=== PATIENT | female | born 1970 | race American Indian/Alaskan Native ===

== ENCOUNTER 2019-11-11 14:14 | Emergency (ER) | payer OTHER ==
[2019-11-11 14:38] VITALS: BP 120/68; PULSE 110
--- NOTE | 2019-11-11 15:24 | CR ---
EXAMINATION: Chest 1V Frontal SEX: Female AGE: 49 years CLINICAL HISTORY: 49-year-old female with postoperative fever. INTERPRETATION: Generally poor inspiratory effort morbidly obese patient. 1. Platelike atelectasis left midlung. 2. Some peribronchial "cuffing" but no focal lobar pneumonia. No other atelectasis/collapse. 3. Normal cardiac silhouette without pulmonary vascular congestion, cephalization flow or alveolar edema. 4. No lung mass or hilar lymphadenopathy. 5. No pneumothorax or pneumomediastinum. 6. Tracheobronchial airway unremarkable. No foreign bodies. CONCLUSION: Mild bronchitis and perihilar atelectasis on the left. No lobar pneumonia. CONCLUSION:
--- NOTE | 2019-11-11 15:27 | EDM.PDOC ---
ED HPI GENERAL MEDICAL PROBLEM - General Chief Complaint: Back Pain or Injury Stated Complaint: FEVER- JUST HAD SURGERY Time Seen by Provider: 11/11/19 15:00 Source of Information: Reports: Patient, Old Records, RN, RN Notes Reviewed History Limitations: Reports: No Limitations - History of Present Illness INITIAL COMMENTS - FREE TEXT/NARRATIVE: Pt presents to ER from home by POV via wheelchair with c/o of a fever this morning of 101.8F on POD #2 s/p L5/S1 fusion. Pt states she had surgery on Thursday11/09/[address] [place] [address] Harrell at [facility] in [place]. She reports having a spinal fusion at L5-S1 with 2 rods and 4 screws and a graphite spacer. She contacted her surgeon's office today and was told to come to the ER. Pt denies cough, dysuria, nausea, vomiting, diarrhea, or surgical wound drainage. Onset: Today Duration: Resolved Prior to Arrival Location: Reports: Generalized Severity: Moderate Improves with: Reports: None Worsens with: Reports: None Associated Symptoms: Reports: No Other Symptoms Back Pain Score (Numeric/FACES): 8 - Related Data Allergies Allergy/AdvReac Type Severity Reaction Status Date / Time No Known Allergies Allergy Verified 11/11/19 14:32 Home Meds: Home Meds Ibuprofen [Advil Migraine] 600 mg PO Q4H 09/28/13 [History] Acetaminophen [Tylenol] 1,000 mg PO ASDIRECTED 12/01/15 [History] Cyclobenzaprine [Flexeril] 10 mg PO BID 11/11/19 [History] DULoxetine [Cymbalta] 30 mg PO BEDTIME 11/11/19 [History] Liraglutide [Victoza] 1.8 mg SQ DAILY 11/11/19 [History] metFORMIN [Glucophage XR] 1,000 mg PO BIDMEALS PRN 11/11/19 [History] oxyCODONE 5 mg PO PRN 11/11/19 [History] Past Medical History HEENT History: Reports: None Cardiovascular History: Reports: None Respiratory History: Reports: None Gastrointestinal History: Reports: None Genitourinary History: Reports: None HEALTH COMMUNICATIONS SPECIALIST History: Reports: None Musculoskeletal History: Reports: Back Pain, Chronic Neurological History: Reports: None Psychiatric History: Reports: None Endocrine/Metabolic History: Reports: Diabetes, Type II, Obesity/BMI 30+ Hematologic History: Reports: None Immunologic History: Reports: None Oncologic (Cancer) History: Reports: None Dermatologic History: Reports: None - Infectious Disease History Infectious Disease History: Reports: None - Past Surgical History Head Surgeries/Procedures: Reports: None Musculoskeletal Surgical History: Reports: Other (See Below) Other Musculoskeletal Surgeries/Procedures:: back surgery L5-S1 Social & Family History - Family History Family Medical History: Noncontributory - Tobacco Use Smoking Status *Q: Never Smoker Second Hand Smoke Exposure: No - Caffeine Use Caffeine Use: Reports: Soda - Recreational Drug Use Recreational Drug Use: No - Living Situation & Occupation Living situation: Reports: with Family ED ROS GENERAL - Review of Systems Review Of Systems: Comprehensive ROS is negative, except as noted in HPI. ED EXAM,LOWER BACK PAIN/INJURY - Physical Exam Exam: See Below Exam Limited By: No Limitations General Appearance: Alert, No Apparent Distress, Obese Eye Exam: Bilateral Eye: Normal Inspection Nose: Normal Inspection, Normal Mucosa, No Blood Throat/Mouth: Normal Inspection, Normal Lips, Normal Teeth, Normal Gums, Normal Oropharynx, Normal Voice, No Airway Compromise Head: Atraumatic, Normocephalic Neck: Normal Inspection, Supple, Non-Tender, Full Range of Motion Respiratory/Chest: No Respiratory Distress, Lungs Clear, Normal Breath Sounds, No Accessory Muscle Use, Chest Non-Tender Cardiovascular: Regular Rate, Rhythm, Tachycardia GI/Abdominal: Normal Bowel Sounds, Soft, Non-Tender, Other (Benign obese abdomen ) (Female) Exam: Deferred Rectal (Female) Exam: Deferred Back Exam: Paraspinal Tenderness (as expected postoperatively), Other (Lumbar surgical dressings are clean and dry, wounds intact without erythema or drainage.). No: CVA Tenderness (L), CVA Tenderness (R), Vertebral Tenderness Extremities: Normal Inspection Neurological: Alert, Normal Mood/Affect, Normal Dorsiflexion, CN II-XII Intact, Normal Plantar Flexion, No Motor/Sensory Deficits, Oriented x 3 Psychiatric: Normal Affect, Normal Mood Skin Exam: Warm, Dry, Normal Color, No Rash Course - Vital Signs Last Recorded V/S: Last Vital Signs Temp 99.0 F 11/11/19 14:35 Pulse 110 H 11/11/19 14:35 Resp 20 11/11/19 14:35 BP 120/68 11/11/19 14:35 Pulse Ox 97 11/11/19 14:35 - Orders/Labs/Meds Labs: Laboratory Tests 11/11/19 11/11/19 11/11/19 Range/Units 14:50 15:00 15:21 WBC 14.3 H (5.0-10.0) 10^3/uL RBC 4.81 (4.2-5.4) 10^6/uL Hgb 13.7 (12.0-16.0) g/dL Hct 40.9 (37.0-47.0) % MCV 85.0 D (80-100) fL MCH 28.5 (27.0-34.0) pg MCHC 33.5 (33.0-35.0) g/dL Plt Count 251 (150-450) 10^3/uL Neut % (Auto) 71.1 (42.2-75.2) % Lymph % (Auto) 20.4 L (20.5-50.1) % Boyle % (Auto) 7.5 (2-8) % Eos % (Auto) 0.7 L (1.0-3.0) % Baso % (Auto) 0.3 (0.0-1.0) % Urine Color Yellow (YELLOW) Urine Appearance Slightly cloudy (CLEAR) Urine pH 6.5 (5.0-9.0) Ur Specific [place] 1.020 (1.005-1.030) Urine Protein 30 H (NEGATIVE) Urine Glucose (UA) 500 H (NEGATIVE) Urine Ketones Negative (NEGATIVE) Urine Occult Blood Negative (NEGATIVE) Urine Nitrite Negative (NEGATIVE) Urine Bilirubin Negative (NEGATIVE) Urine Urobilinogen 0.2 (0.2-1.0) mg/dL Ur Leukocyte Esterase Negative (NEGATIVE) Urine RBC 5-10 H /HPF Urine WBC 0-5 (0-5/HPF) /HPF Ur Epithelial Cells Few (NOT SEEN) /HPF Urine Bacteria Rare (0-FEW/HPF) /HPF Urine Mucus Rare (NOT SEEN) /LPF SARS-CoV-2 RNA (RT-PCR) Negative (NEGATIVE) - Radiology Interpretation Free Text/Narrative:: XR Chest: Mild bronchitis and perihilar atelectasis on the left. No lobar pneumonia. Departure - Departure Time of Disposition: 15:48 Disposition: Home, Self-Care 01 Condition: Good Clinical Impression: Atelectasis of left lung, Postoperative fever - Discharge Information *PRESCRIPTION DRUG MONITORING PROGRAM REVIEWED*: Not Applicable *COPY OF PRESCRIPTION DRUG MONITORING REPORT IN PATIENT CASIMIRO: Not Applicable Instructions: Atelectasis, Adult Forms: ED Department Discharge Additional Instructions: Rx: Zithromax 500mg Call your surgeon if any fever returns. Sepsis Event Note - Evaluation Sepsis Screening Result: No Definite Risk - Focused Exam Vital Signs: Vital Signs Temp Pulse Resp BP Pulse Ox 11/11/19 14:35 99.0 F 110 H 20 120/68 97 Date Exam was Performed: 11/11/19 Time Exam was Performed: 15:46
== END 2019-11-11 15:57 | disposition home or self-care (01) ==
LOC: DL.ED 14:14
DX: J98.11 Atelectasis (principal); E11.9 Type 2 diabetes mellitus without complications; E66.9 Obesity, unspecified; Z79.899 Other long term (current) drug therapy; Z79.84 Long term (current) use of oral hypoglycemic drugs; Z68.41 Body mass index [BMI] 40.0-44.9, adult
CPT/HCPCS: 36415; 71045; 81001; 85025; 99283; U0002

== ENCOUNTER 2020-01-13 20:56 | Emergency (ER) | payer OTHER ==
--- NOTE | 2020-01-13 21:42 | EDM.PDOC ---
ED HPI GENERAL MEDICAL PROBLEM - General Chief Complaint: Respiratory Problem Stated Complaint: COVID Time Seen by Provider: 01/13/20 21:38 Source of Information: Reports: Patient, RN History Limitations: Reports: No Limitations - History of Present Illness INITIAL COMMENTS - FREE TEXT/NARRATIVE: ED with c/o SOB and weakness. Diagnosed with CoVID on Thursday after 10days of symptoms. Reports exposure from family member that was at basketball camp. Spouse also positive. no hx asthma. Prior smoker. nausea, decreased appetite, Loss of taste and smell. denies fever Anterior Chest Pain Score (Numeric/FACES): 8 - Related Data Allergies Allergy/AdvReac Type Severity Reaction Status Date / Time No Known Allergies Allergy Verified 01/13/20 22:00 Home Meds: Home Meds Ibuprofen [Advil Migraine] 600 mg PO Q4H 09/28/13 [History] Acetaminophen [Tylenol] 1,000 mg PO ASDIRECTED 12/01/15 [History] Cyclobenzaprine [Flexeril] 10 mg PO BID 11/11/19 [History] DULoxetine [Cymbalta] 30 mg PO BEDTIME 11/11/19 [History] Liraglutide [Victoza] 1.8 mg SQ DAILY 11/11/19 [History] metFORMIN [Glucophage XR] 1,000 mg PO BIDMEALS PRN 11/11/19 [History] Zolpidem [Ambien] 5 mg PO BEDTIME PRN 01/13/20 [History] Past Medical History HEENT History: Reports: None Cardiovascular History: Reports: None Respiratory History: Reports: None Gastrointestinal History: Reports: None Genitourinary History: Reports: None [employer] INSULATION SUPERVISOR History: Reports: None Musculoskeletal History: Reports: Back Pain, Chronic Neurological History: Reports: None Psychiatric History: Reports: None Endocrine/Metabolic History: Reports: Diabetes, Type II, Obesity/BMI 30+ Hematologic History: Reports: None Immunologic History: Reports: None Oncologic (Cancer) History: Reports: None Dermatologic History: Reports: None - Infectious Disease History Infectious Disease History: Reports: None - Past Surgical History Head Surgeries/Procedures: Reports: None Musculoskeletal Surgical History: Reports: Other (See Below) Other Musculoskeletal Surgeries/Procedures:: back surgery L5-S1 Social & Family History - Family History Family Medical History: Noncontributory - Caffeine Use Caffeine Use: Reports: Soda - Living Situation & Occupation Living situation: Reports: with Family ED ROS GENERAL - Review of Systems Review Of Systems: Comprehensive ROS is negative, except as noted in HPI. ED EXAM, GENERAL - Physical Exam Exam: See Below Exam Limited By: No Limitations General Appearance: Alert, Mild Distress Eye Exam: Bilateral Eye: EOMI, PERRL Ears: Normal External Exam, Normal TMs Nose: Normal Inspection Throat/Mouth: Normal Inspection Head: Atraumatic, Normocephalic Neck: Normal Inspection Respiratory/Chest: Decreased Breath Sounds. No: Rales, Rhonchi, Wheezing Cardiovascular: Normal Peripheral Pulses, Regular Rate, Rhythm, Tachycardia GI/Abdominal: Normal Bowel Sounds, Soft, Non-Tender Back Exam: Normal Inspection Extremities: Normal Inspection Neurological: Alert, Oriented, Normal Cognition Psychiatric: Anxious, Flat Affect Skin Exam: Warm, Dry, Intact, Normal Color Course - Vital Signs Last Recorded V/S: Last Vital Signs Temp Pulse 114 H 01/13/20 21:30 Resp 22 H 01/13/20 21:30 BP 118/89 01/13/20 21:30 Pulse Ox 99 01/13/20 21:30 - Orders/Labs/Meds Orders: Active Orders 24 hr Category Date Time Status EKG Documentation Completion [RC] URGENT Care 01/13/20 21:38 Active CULTURE BLOOD [BC] Stat Lab 01/13/20 21:50 Received CULTURE BLOOD [BC] Stat Lab 01/13/20 21:55 Results Blood Culture x2 Reflex Set [OM.PC] Stat Oth 01/13/20 21:38 Ordered Labs: Laboratory Tests 01/13/20 01/13/20 01/13/20 Range/Units 21:50 21:50 21:50 WBC 8.2 (5.0-10.0) 10^3/uL RBC 5.66 H (4.2-5.4) 10^6/uL Hgb 15.4 D (12.0-16.0) g/dL Hct 46.2 (37.0-47.0) % MCV 81.6 D (80-100) fL MCH 27.2 (27.0-34.0) pg MCHC 33.3 (33.0-35.0) g/dL Plt Count 218 (150-450) 10^3/uL Neut % (Auto) 65.2 (42.2-75.2) % Lymph % (Auto) 29.0 (20.5-50.1) % Will % (Auto) 5.1 (2-8) % Eos % (Auto) 0.5 L (1.0-3.0) % Baso % (Auto) 0.2 (0.0-1.0) % D-Dimer, Quantitative (0-400) ng/mL Sodium 135 L (136-145) mmol/L Potassium 3.5 (3.5-5.1) mmol/L Chloride 98 (98-107) mmol/L Carbon Dioxide 26 (21-32) mmol/L Anion Gap 14.5 H (7-13) mEq/L BUN 8 (7-18) mg/dL Creatinine 0.92 (0.55-1.02) mg/dL Est Cr Clr Drug Dosing 70.77 mL/min Estimated GFR (MDRD) > 60 BUN/Creatinine Ratio 8.7 (No establ ref range) Glucose 214 H (74-99) mg/dL Lactic Acid 2.6 H* (0.4-2.0) mmol/L Calcium 8.4 L (8.5-10.1) mg/dL Total Bilirubin 0.6 (0.2-1.0) mg/dL AST 45 H (15-37) U/L ALT 70 H (14-59) U/L Alkaline Phosphatase 109 (46-116) U/L C-Reactive Protein 5.9 H (0.0-0.9) mg/dL Total Protein 7.6 (6.4-8.2) g/dL Albumin 3.2 L (3.4-5.0) g/dL Globulin 4.4 Albumin/Globulin Ratio 0.73 Amylase 53 (25-115) U/L Lipase 264 (73-393) U/L /12/25 Range/Units 21:50 WBC (5.0-10.0) 10^3/uL RBC (4.2-5.4) 10^6/uL Hgb (12.0-16.0) g/dL Hct (37.0-47.0) % MCV (80-100) fL MCH (27.0-34.0) pg MCHC (33.0-35.0) g/dL Plt Count (150-450) 10^3/uL Neut % (Auto) (42.2-75.2) % Lymph % (Auto) (20.5-50.1) % Will % (Auto) (2-8) % Eos % (Auto) (1.0-3.0) % Baso % (Auto) (0.0-1.0) % D-Dimer, Quantitative 259 (0-400) ng/mL Sodium (136-145) mmol/L Potassium (3.5-5.1) mmol/L Chloride (98-107) mmol/L Carbon Dioxide (21-32) mmol/L Anion Gap (7-13) mEq/L BUN (7-18) mg/dL Creatinine (0.55-1.02) mg/dL Est Cr Clr Drug Dosing mL/min Estimated GFR (MDRD) BUN/Creatinine Ratio (No establ ref range) Glucose (74-99) mg/dL Lactic Acid (0.4-2.0) mmol/L Calcium (8.5-10.1) mg/dL Total Bilirubin (0.2-1.0) mg/dL AST (15-37) U/L ALT (14-59) U/L Alkaline Phosphatase (46-116) U/L C-Reactive Protein (0.0-0.9) mg/dL Total Protein (6.4-8.2) g/dL Albumin (3.4-5.0) g/dL Globulin Albumin/Globulin Ratio Amylase (25-115) U/L Lipase (73-393) U/L Meds: Medications Discontinued Medications Generic Name Dose Route Start Last Admin Trade Name Freq PRN Reason Stop Dose Admin Aspirin 324 mg 01/13/20 22:42 01/13/20 23:27 Aspirin PO 01/13/20 22:43 324 mg ONETIME ONE Administration Sodium Chloride 250 mls @ 100 mls/hr 01/13/20 23:30 Normal Saline IV ASDIRECTED ROBERTA Sodium Chloride 1,000 mls @ 100 mls/hr 01/13/20 23:30 01/13/20 23:25 Normal Saline IV 100 mls/hr ASDIRECTED ROBERTA Administration Morphine Sulfate 2 mg 01/13/20 22:42 01/13/20 23:25 Morphine IVPUSH 01/13/20 22:43 2 mg ONETIME ONE Administration Morphine Sulfate 2 mg 01/14/20 00:05 01/14/20 00:23 Morphine IVPUSH 01/14/20 00:06 2 mg ONETIME ONE Administration - Re-Assessments/Exams Free Text/Narrative Re-Assessment/Exam: 01/14/20 05:04 Brief desaturation to 87% with episode of coughing and exertion of positional change. Rapid recovery to upper 90's. TC Dr Plata, recommend Tx to higher care with desaturation. no bed availability at [facility]. [facility] via [facility]. Departure - Departure Time of Disposition: 00:40 Disposition: DC/Tfer to Acute Hospital 02 Condition: Fair Clinical Impression: Hypoxemia, COVID-19 - Discharge Information *PRESCRIPTION DRUG MONITORING PROGRAM REVIEWED*: No *COPY OF PRESCRIPTION DRUG MONITORING REPORT IN PATIENT CASIMIRO: No Referrals: PCP,Unobtain [Primary Care Provider] - Forms: ED Department Discharge Sepsis Event Note (ED) - Focused Exam Vital Signs: Vital Signs Pulse Resp BP Pulse Ox 01/13/20 21:30 114 H 22 H 118/89 99 - My Orders Last 24 Hours: My Active Orders 01/13/20 21:38 EKG Documentation Completion [RC] URGENT Blood Culture x2 Reflex Set [OM.PC] Stat 01/13/20 21:50 CULTURE BLOOD [BC] Stat 01/13/20 21:55 CULTURE BLOOD [BC] Stat - Assessment/Plan Last 24 Hours: My Active Orders 01/13/20 21:38 EKG Documentation Completion [RC] URGENT Blood Culture x2 Reflex Set [OM.PC] Stat 01/13/20 21:50 CULTURE BLOOD [BC] Stat 01/13/20 21:55 CULTURE BLOOD [BC] Stat
[2020-01-13 21:59] VITALS: BP 118/89; PULSE 114
[2020-01-13 22:22] LABS: ANION GAP 14.5 mEq/L (7-13); CHLORIDE,CL 98 mmol/L (98-107); SODIUM,NA 135 mmol/L (136-145)
[2020-01-13] MEDS ORDERED: Aspirin 81 MG Tab.Chew PO ONE (22:42)
[2020-01-13] MEDS ORDERED: Morphine 2 MG/ML SYRINGE IVPUSH ONE (22:42)
--- NOTE | 2020-01-13 22:54 | CR ---
PROCEDURE INFORMATION: Exam: XR Chest, 1 View Exam date and time: 01/13/2020 10:35 PM Age: 49 years old Clinical indication: Other: Chest pain; Additional info: Covid, chest pain with inspiration, TECHNIQUE: Imaging protocol: XR of the chest Views: 1 view. COMPARISON: CR Chest 1V Frontal 11/11/2019 2:56 PM FINDINGS: Lungs: There is hazy increased density in the right upper lobe, new compared with the prior exam. There is a thin linear band of atelectasis or scarring in the lateral left lung base. Pleural space: There are no pleural effusions. There is no pneumothorax. Heart/Mediastinum: The heart size is stable as are the mediastinal and hilar contours. The pulmonary vessels are normal. Bones/joints: No acute osseous pathology is identified. Limitations: Image quality is unfortunately limited due to the patient's body habitus. IMPRESSION: Hazy increased density in the right upper lung field is suspicious for developing pneumonia.
[2020-01-13] MEDS ORDERED: Sodium Chloride 0.9% 250 ML IV SCH (23:30)
[2020-01-13] MEDS ORDERED: Sodium Chloride 0.9% 1,000 ML IV SCH (23:30)
[2020-01-14] MEDS ORDERED: Morphine 2 MG/ML SYRINGE IVPUSH ONE (00:05)
== END 2020-01-14 00:20 ==
LOC: DL.ED 20:56
DX: U07.1 COVID-19 (principal); R09.02 Hypoxemia; R00.0 Tachycardia, unspecified; E11.9 Type 2 diabetes mellitus without complications; E66.9 Obesity, unspecified; Z68.41 Body mass index [BMI] 40.0-44.9, adult
CPT/HCPCS: 36415; 71045; 80053; 82150; 83605; 83690; 85025; 85379; 86140; 87040; 93005; 96361; 96374; 96376; 99285; A9270; J2270; J7030; 99284

== ENCOUNTER 2021-09-21 07:01 | Emergency (ER) | payer OTHER ==
[2021-09-21] MEDS ORDERED: Clindamycin in 0.9 % Sod Chlor 600 MG in Premix Bag 1 BAG IV ONE ×2 (07:55)
[2021-09-21] MEDS ORDERED: Lidocaine 2% Viscous Solution 15 ML UD PO ONE (08:06)
[2021-09-21 08:41] VITALS: BP 147/100; PULSE 69
== END 2021-09-21 08:43 | disposition home or self-care (01) ==
LOC: DL.ED 07:01
DX: K04.7 Periapical abscess without sinus (principal); E11.9 Type 2 diabetes mellitus without complications; Z79.84 Long term (current) use of oral hypoglycemic drugs; E66.9 Obesity, unspecified; Z68.38 Body mass index [BMI] 38.0-38.9, adult; Z72.0 Tobacco use
CPT/HCPCS: 96365; 99282; 99284; A9270; J3490

== ENCOUNTER 2023-11-07 22:27 | Emergency (ER) | payer OTHER ==
[2023-11-07 23:13] VITALS: BP 140/92; PULSE 99
[2023-11-07 23:31] LABS: BASOPHILS PERCENT AUTO 0.6 % (0.0-1.0); EOSINOPHILS PERCENT AUTO 3.2 % (1.0-3.0); HEMATOCRIT 41.5 % (37.0-47.0); HEMOGLOBIN 13.2 g/dL (12.0-16.0); LYMPHOCYTES PERCENT AUTO 34.7 % (20.5-50.1); MEAN CORPUSCULAR HEMOGLOBIN 24.6 pg (27.0-34.0); MEAN CORPUSCULAR HGB CONC 31.8 g/dL (33.0-35.0); MEAN CORPUSCULAR VOLUME 77.4 fL (80-100); MONOCYTES PERCENT AUTO 5.5 % (2-8); PLATELET COUNT,PLT 266 10^3/uL (150-450); RED BLOOD CELL COUNT 5.36 10^6/uL (4.2-5.4); WHITE BLOOD CELL COUNT,WBC 8.7 10^3/uL (5.0-10.0)
[2023-11-07 23:46] LABS: A/G RATIO 0.9; ALBUMIN 3.5 g/dL (3.4-5.0); BILIRUBIN TOTAL 0.3 mg/dL (0.2-1.0); BUN/CREATININE RATIO 10.3 (No establ ref range); C-REACTIVE PROTEIN 1.14 ng/dL (<=0.50); CALCIUM 9.4 mg/dL (8.5-10.1); CREATININE 0.97 mg/dL (0.55-1.02); EST CRCL DRUG DOSING (CG) 66.72 mL/min; MAGNESIUM 1.5 mg/dL (1.8-2.4); PROTEIN TOTAL,TP 7.6 g/dL (6.4-8.2)
[2023-11-08 00:10] LABS: APPEARANCE,URINE CLEAR (CLEAR); BILIRUBIN,URINE NEGATIVE (NEGATIVE); COLOR,URINE YELLOW (YELLOW); GLUCOSE,URINE >=1000 (NEGATIVE); KETONES,URINE NEGATIVE (NEGATIVE); LEUKOCYTE ESTERASE,URINE NEGATIVE (NEGATIVE); NITRITE,URINE NEGATIVE (NEGATIVE); OCCULT BLOOD,URINE TRACE-INTACT (NEGATIVE); PROTEIN,URINE NEGATIVE (NEGATIVE); UROBILINOGEN,URINE 0.2 mg/dL (0.2-1.0)
[2023-11-08 00:11] LABS: AMORPHOUS SEDIMENT,URINE RARE /HPF (NOT SEEN); BACTERIA,URINE FEW /HPF (0-FEW/HPF); EPITHELIAL CELLS,URINE MODERATE /HPF (NOT SEEN); MUCUS,URINE FEW /LPF (NOT SEEN); WBC,URINE 0-5 /HPF (0-5/HPF)
[2023-11-08] MEDS: Insulin Regular, Human 100 Units/ML 3 ML Vial SUBCUT ONE (00:54)
[2023-11-08] MEDS ORDERED: Take Home: Acetaminophen/oxyCODONE 325-5 MG, 5 Tab Pack PO ONE (00:58)
== END 2023-11-08 01:28 | disposition home or self-care (01) ==
LOC: DL.ED 22:27
DX: R20.2 Paresthesia of skin (principal); E11.65 Type 2 diabetes mellitus with hyperglycemia; E83.42 Hypomagnesemia; E66.9 Obesity, unspecified; Z79.1 Long term (current) use of non-steroidal anti-inflammatories (NSAID); Z79.899 Other long term (current) drug therapy; Z68.38 Body mass index [BMI] 38.0-38.9, adult; Z79.84 Long term (current) use of oral hypoglycemic drugs
CPT/HCPCS: 36415; 72100; 80053; 81001; 83735; 85025; 85651; 86140; 99284; J1815